=== PATIENT | female | born 1955 | race Caucasian/White ===

== ENCOUNTER 2016-10-19 18:42 | Outpatient (CLI) | payer OTHER | END 2016-10-19 18:43 | disposition home or self-care (01) | DX: R51 Headache (principal) ==

== ENCOUNTER 2017-06-17 08:48 | Outpatient (CLI) | payer OTHER ==
--- NOTE | 2017-06-19 14:10 | XRAY Report ---
EXAMINATION: THREE-VIEW LEFT FOOT 06/17/2017 CLINICAL INDICATION: Metatarsal pain. FINDINGS: AP, lateral, oblique views of the left foot demonstrate no evidence of acute fracture. Osteoarthritic changes are present, worst in the first metatarsophalangeal joint. Plantar and posterior calcaneal spurring is noted. IMPRESSION: OSTEOARTHRITIS. NO EVIDENCE OF ACUTE FRACTURE. TD: 06/17/2017 14:37 [facility]
== END 2017-06-17 08:49 | disposition home or self-care (01) ==
LOC: DI 08:48
PROVIDERS: ATTEND Family Medicine
DX: M19.072 Primary osteoarthritis, left ankle and foot (principal)

== ENCOUNTER 2018-10-10 15:26 | Outpatient (CLI) | payer OTHER ==
--- NOTE | 2018-10-13 13:13 | DEXA Report ---
Reason: R BREAST CANCER Procedure Date: 10/10/2018 Accession Number: [id number] / [id number] Procedure: DEX - Dexa Spine and/or Hip CPT Code: FULL RESULT: EXAM: Dexa Spine and/or Hip DATE: 10/10/2018 3:55 PM CLINICAL HISTORY: R BREAST CANCER TECHNIQUE: Dual energy x-ray absorptiometry (DXA) was performed on a [facility]. Regions measured are the AP Spine, femoral neck, and if needed forearm. COMPARISON: 03/29/2017. In accordance with the International Society for Clinical Densitometry (ISCD) guidelines, data from previous exams may be reanalyzed using current recommendations and techniques. This is done to allow a more accurate basis for comparison with the current study. FINDINGS: The data for the lumbar spine is as follows: BMD (g/cm/cm) T-SCORE Z-SCORE REGION L1 1.022 -0.9 0.5 L2 1.036 -1.4 0.1 L3 1.139 -0.5 0.9 L4 1.051 -1.2 0.2 TOTAL 1.065 -1.0 0.5 NOTE: All evaluable vertebrae are used for classification The data for the hip is as follows: BMD (g/cm/cm) T-SCORE Z-SCORE REGION Neck 0.995 -0.3 1.0 TOTAL 1.004 0.0 1.0 NOTE: The femoral neck or total proximal femur, whichever is lowest, is used for classification. DXA RESULTS SUMMARY: Spine SCAN DATE AGE BMD CHANGE VS CHANGE VS PREVIOUS PREVIOUS % 10[age]10/2018 63.3 1.065 -0.072* -6.3* 03/29/2017 61.7 1.137 * Denotes significant change at the 95% confidence level. Denotes dissimilar scan types or analysis methods. DXA RESULTS SUMMARY: Hip SCAN DATE AGE BMD CHANGE VS CHANGE VS PREVIOUS PREVIOUS % 10[age]10/2018 63.3 1.004 -0.011 -1.1 03/29/2017 61.7 1.015 * Denotes significant change at the 95% confidence level. Denotes dissimilar scan types or analysis methods. IMPRESSION: THE WHO CLASSIFICATION BASED ON THE INTERNATIONAL REFERENCE STANDARD IS NORMAL. THE FRACTURE RISK IS NOT INCREASED. RECOMMENDATION: Patients with diagnosis of osteoporosis or osteopenia should have regular bone mineral density assessment. For those eligible for Medicare, routine testing is allowed once every 2 years. Testing frequency can be increased for patients who have rapidly progressing disease or for those who are receiving medical therapy to restore bone mass. COMMENT: World Health Organization (WHO) definitions for osteoporosis and osteopenia: NORMAL BMD: T-score at -1.0 or higher, fracture risk is low OSTEOPENIA BMD: T-score between -1.0 and -2.5, fracture risk is increased. OSTEOPOROSIS BMD: T-score at -2.5 or lower, fracture risk is high. National Osteoporosis Foundation recommends: 1. Obtain adequate dietary calcium (at least 1200 mg per day) and vitamin D (400-800 international units per day). 2. Participate, as appropriate, in regular weightbearing and muscle-strengthening exercise. 3. Avoid tobacco use and reduce alcohol and caffeine intake. 4. For more detailed information see the website at www.NOF.org.
== END 2018-10-10 15:27 | disposition home or self-care (01) ==
LOC: DI 15:26
PROVIDERS: ATTEND Internal Medicine Hematology & Oncology
DX: Z78.0 Asymptomatic menopausal state (principal); C50.911 Malignant neoplasm of unspecified site of right female breast
CPT/HCPCS: 77080

== ENCOUNTER 2019-01-06 08:00 | Outpatient (CLI) | payer OTHER ==
[2019-01-06 12:17] LABS: BASOPHILS # (AUTO) 0.1 10^3/uL (0.0-0.1); EOSINOPHILS # (AUTO) 0.3 10^3/uL (0.0-0.7); HGB - HEMOGLOBIN 13.5 g/dL (12.0-16.0); LYMPHOCYTES # (AUTO) 1.8 10^3/uL (1.5-3.5); LYMPHOCYTES % (AUTO) 30.9 %; MEAN CORPUSCULAR HEMOGLOBIN 32.3 pg (27.0-31.0); MEAN CORPUSCULAR HGB CONC 33.9 g/dL (32.0-36.0); MEAN CORPUSCULAR VOLUME 95.2 fL (81.0-99.0); MEAN PLATELET VOLUME 9.6 fL (7.9-10.8); MONOCYTES # (AUTO) 0.6 10^3/uL (0.0-1.0); MONOCYTES % (AUTO) 9.9 %; NEUTROPHILS % (AUTO) 52.9 %; PLT - PLATELET COUNT 357 10^3/uL (130-450); RED BLOOD COUNT 4.18 10^6/uL (4.20-5.40); RED CELL DISTRIBUTION WIDTH 12.6 % (12.0-15.0); WHITE BLOOD COUNT 5.8 x10^3/uL (4.8-10.8)
[2019-01-06 12:55] LABS: ALBUMIN/GLOBULIN RATIO 1.3 (1.0-2.2); ALKALINE PHOSPHATASE 71 IU/L (42-121); ALT ALANINE AMINOTRANSFERASE 51 IU/L (10-60); AST ASPARTATE AMINOTRANSFERASE 29 IU/L (10-42); BILIRUBIN,TOTAL 0.6 mg/dL (0.2-1.0); BUN - BLOOD UREA NITROGEN 15 mg/dL (6-20); CALCIUM 9.4 mg/dL (8.5-10.3); CARBON DIOXIDE - CO2 23 mmol/L (21-32); CHLORIDE 108 mmol/L (101-111); CHOL/HDL RATIO 2.8 (<4.4); CHOLESTEROL 222 mg/dL; CREATININE 0.8 mg/dL (0.4-1.0); GFR - MDRD 72 (>89); GLUCOSE 102 mg/dL (70-100); HDL CHOLESTEROL 78 mg/dL; LDL CHOLESTEROL,CALCULATED 129 mg/dL; LDL/HDL RATIO 1.7 (<4.4); SODIUM 141 mmol/L (135-145); VLDL CHOLESTEROL 15 mg/dL
== END 2019-01-06 23:59 | disposition home or self-care (01) ==
LOC: LAB.WCP 08:00
PROVIDERS: ATTEND Family Medicine
DX: E78.5 Hyperlipidemia, unspecified (principal); C50.911 Malignant neoplasm of unspecified site of right female breast
CPT/HCPCS: 36415; 80053; 80061; 83721; 84443; 85025

== ENCOUNTER 2020-04-22 10:53 | Outpatient (CLI) | payer OTHER ==
--- NOTE | 2020-04-22 12:06 | DEXA Report ---
PROCEDURE: Dexa Spine and/or Hip INDICATIONS: POST MENOPAUSAL TECHNIQUE: Dual energy x-ray absorptiometry (DXA) was performed on a [employer] System. Regions measur ed are the AP Spine, femoral neck, and if needed forearm. COMPARISON: Portable 2019 FINDINGS: Lumbar Spine: Bone Mineral Density 1.183 g/cm/cm,T score 0.0, which represents a statistically significant incre ase of 11.1% when compared with prior study. Left Hip: Bone Mineral Density 0.988 g/cm/cm,T score -0.2, which represents a statistically insignificant decr ease of 1.6% when compared with the prior study. Left Femoral Neck: Bone Mineral Density 0.932 g/cm/cm, T score -0.8, which represents a statistically insignificant dec rease of -1.1 when compared with the prior study. (T score greater or equal to -1.0: NORMAL) (T score from -1.1 to -2.4: OSTEOPENIA) (T score less than or equal to -2.5 to: OSTEOPOROSIS) Impression: Normal bone mineral density which has increased significantly in the lumbar spine when co mpared with 10/10/2018 exam. Patients with diagnosis of osteoporosis or osteopenia should have regular bone mineral density assess ment. For those eligible for Medicare, routine testing is allowed once every 2 years. Testing frequ ency can be increased for patients who have rapidly progressing disease or for those who are receivin g medical therapy to restore bone mass. Reviewed by: Arnie Howard MD on 04/22/2020 12:05 PM PDT Approved by: Arnie Howard MD on 04/22/2020 12:05 PM PDT Station ID: [id number]
== END 2020-04-22 10:54 | disposition home or self-care (01) ==
LOC: DI 10:53
PROVIDERS: ATTEND Internal Medicine Hematology & Oncology
DX: Z78.0 Asymptomatic menopausal state (principal)
CPT/HCPCS: 77080

== ENCOUNTER 2021-03-31 09:09 | Outpatient (CLI) | payer OTHER ==
--- NOTE | 2021-03-31 15:39 | Nuclear Medicine Report ---
PROCEDURE: Bone Whole Body INDICATIONS: CARCINOMA OF RIGHT BREAST RADIOPHARMACEUTICAL: 25.8 mCi Tc-99m MDP IV. TECHNIQUE: Delayed whole-body scintigrams were obtained approximately 3-4 hours after intravenous injection of r adiotracer. Anterior and posterior views were acquired from vertex to feet. COMPARISON: None available. FINDINGS: Mild periarticular activity about the knees bilaterally, likely degenerative. There is sim ilar appearance tracer uptake involving the right hindfoot/midfoot, and left first MTP joint. IMPRESSION: No suspicious tracer uptake to suggest osseous metastatic disease. Reviewed by: Elmer Page MD on 03/31/2021 3:37 PM PDT Approved by: Elmer Page MD on 03/31/2021 3:37 PM PDT Station ID: [id number]
== END 2021-03-31 09:10 | disposition home or self-care (01) ==
LOC: DI 09:09
PROVIDERS: ATTEND Family Medicine
DX: C50.911 Malignant neoplasm of unspecified site of right female breast (principal)
CPT/HCPCS: 78306; A9503

== ENCOUNTER 2021-05-10 07:46 | Outpatient (CLI) | payer MEDICARE ==
[2021-05-10 08:26] LABS: CREATININE 0.7 mg/dL (0.4-1.0)
[2021-05-10] MEDS ORDERED: IOVERSOL 320 100 ML VIAL IVP ONE ×2 (08:43→09:07)
--- NOTE | 2021-05-10 09:12 | CT Report ---
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 7 mm thick coronal MIP reformats were acquired. For radia tion dose reduction, the following was used: automated exposure control, adjustment of mA and/or kV according to patient size. COMPARISON: None. FINDINGS: CHEST: Lungs: Scattered subsegmental scarring/atelectasis. No acute consolidation. Pleura: No pleural effusion or pneumothorax. Heart: Normal. Lymph nodes: Normal. Thyroid: Negative Aorta: Normal in size. Pulmonary arteries: Normal. Esophagus: Normal. Bones: Diffuse spondolytic changes and facet arthropathy. No compression fracture. No suspicious bon e lesion. Upper abdomen: Moderate hiatal hernia is noted. Bilateral breast postsurgical changes as well as axillary surgical clips. IMPRESSION: Moderate hiatal hernia. Scattered subsegmental scarring/atelectasis. No acute consolidation. No fracture. No suspicious osseous lesion identified. Reviewed by: Elmer Page MD on 05/10/2021 9:11 AM PST Approved by: Elmer Page MD on 05/10/2021 9:11 AM PST Station ID: [id number]
== END 2021-05-10 07:47 | disposition home or self-care (01) ==
LOC: LAB 07:46 → DI 07:47
PROVIDERS: ATTEND Family Medicine
DX: C50.911 Malignant neoplasm of unspecified site of right female breast (principal); M89.8X1 Other specified disorders of bone, shoulder; Z87.898 Personal history of other specified conditions; K44.9 Diaphragmatic hernia without obstruction or gangrene; J98.11 Atelectasis
CPT/HCPCS: 36415; 71260; 82565; Q9967

== ENCOUNTER 2021-07-04 09:44 | Day surgery (SDC) | payer MEDICARE ==
[2021-07-04] MEDS ORDERED: LACTATED RINGERS 1,000 ML IV ONE (10:00)
--- NOTE | 2021-07-04 10:34 | ANESTHESIA ---
Pre-Anesthesia VS, & Labs - Diagnosis dysphagia, screening - Procedure EGD/Colonoscopy Vital Signs: Temp Pulse Resp BP Pulse Ox 36.7 C 100 12 134/93 H 98 07/04/21 10:01 07/04/21 10:01 07/04/21 10:01 07/04/21 10:01 07/04/21 10:01 Height: 5 ft 4 in Weight (kg): 67 kg Body Mass Index: 25.3 BMI Classification: Overweight - NPO >8 hours - Is Patient ?: No - Lab Results Lab results reviewed: Yes Home Medications and Allergies Citalopram [CeleXA] 20 mg PO DAILY 01/26/13 Gabapentin 300 mg PO Q8H PRN 02/24/13 Calcium Carbonate [Calcium] 500 mg PO DAILY 06/15/14 Multivitamin [Multi Vitamin Daily] 1 each PO DAILY 06/15/14 Exemestane [Aromasin] 25 mg PO DAILY 04/09/17 Allergies/Adverse Reactions: Allergies Allergy/AdvReac Type Severity Reaction Status Date / Time No Known Drug Allergies Allergy Verified 04/26/20 10:59 Anes History & Medical History - Anesthetic History Anesthesia Complications: reports: No previous complications Family history of Anesthesia Complications: Denies Family history of Malignant Hyperthermia: Denies - Medical History Cardiovascular: reports: None Pulmonary: reports: Other Gastrointestinal: reports: GERD, Hiatal hernia Urinary: reports: None Musculoskeletal: reports: None Endocrine/Autoimmune: reports: None Skin: reports: None - Surgical History General: reports: Colonoscopy Eyes Ears Nose Throat (EENT): reports: Cataracts Gynecologic: reports: Mastectomy, Other Exam General: Alert, Oriented x3, Cooperative Dental: WNL Mouth Openin Fingerbreadth Neck Mobility: Normal Mallampati classification: II Thyromental Distance: 4-6 cm Respiratory: Lungs clear, Normal breath sounds, No respiratory distress Cardiovascular: Regular rate Neurological: Normal speech Mental/Cognitive Status: Alert/Oriented X3, Normal for patient Cognitive Status: Within normal limits Plan Anesthesia Type: General Consent for Procedure(s) Verified and Reviewed: Yes Code Status: Attempt Resuscitation ASA classification: 2-Mild systemic disease Is this case an emergency?: No
[2021-07-04] MEDS ORDERED: LIDOCAINE-MPF 2% 5 ML VIAL ONE (11:27)
[2021-07-04] MEDS ORDERED: PROPOFOL 200 MG/20 ML VIAL IVP ONE (11:27)
[2021-07-04] MEDS ORDERED: PROPOFOL 500 MG/50 ML 500 MG/50 ML VIAL ONE (11:28)
[2021-07-04] MEDS ORDERED: LACTATED RINGERS 200 ML IV ONE (12:14)
[2021-07-04 12:50] VITALS: BP 110/72
--- NOTE | 2021-07-04 14:04 | ANESTHESIA POST OP EVALUATION ---
Anesthesia Post Eval - Post Anesthesia Eval Vitals: Last Vital Signs Temp 36.6 C 07/04/21 12:49 Pulse 68 07/04/21 12:49 Resp 17 07/04/21 12:49 BP 110/72 07/04/21 12:49 Pulse Ox 99 07/04/21 12:49 CV Function Including HR & BP: Stable Pain Control: Satisfactory Nausea & Vomiting: Negative Mental Status: Baseline Respiratory Status: Airway Patent Hydration Status: Satisfactory Anesthesia Complications: None
== END 2021-07-04 09:45 | disposition home or self-care (01) ==
LOC: SDS 09:44
PROVIDERS: ATTEND Surgery
PROC: 0DB48ZX Excision of Esophagogastric Junction, Via Natural or Artificial Opening Endoscopic, Diagnostic (ICD-10-PCS; 2021-07-04)
PROC: 0DB68ZX Excision of Stomach, Via Natural or Artificial Opening Endoscopic, Diagnostic (ICD-10-PCS; 2021-07-04)
PROC: 0DJD8ZZ Inspection of Lower Intestinal Tract, Via Natural or Artificial Opening Endoscopic (ICD-10-PCS; 2021-07-04)
PROC: 0DB98ZX Excision of Duodenum, Via Natural or Artificial Opening Endoscopic, Diagnostic (ICD-10-PCS; principal; 2021-07-04 10:45)
PROC: 0DB58ZX Excision of Esophagus, Via Natural or Artificial Opening Endoscopic, Diagnostic (ICD-10-PCS; 2021-07-04 10:45)
DX: Z12.11 Encounter for screening for malignant neoplasm of colon (principal); R13.10 Dysphagia, unspecified; K29.50 Unspecified chronic gastritis without bleeding; K44.9 Diaphragmatic hernia without obstruction or gangrene; K57.30 Diverticulosis of large intestine without perforation or abscess without bleeding; K64.8 Other hemorrhoids; K21.9 Gastro-esophageal reflux disease without esophagitis; F41.9 Anxiety disorder, unspecified; F32.A Depression, unspecified; Z85.3 Personal history of malignant neoplasm of breast
CPT/HCPCS: 43239; 43250; G0121; J7120

== ENCOUNTER 2023-03-06 07:08 | Outpatient (CLI) | payer MEDICARE ==
[2023-03-06 07:26] LABS: BASOPHILS # (AUTO) 0.1 10^3/uL (0.0-0.1); EOSINOPHILS # (AUTO) 0.4 10^3/uL (0.0-0.7); EOSINOPHILS % (AUTO) 6.7 %; HCT - HEMATOCRIT 40.7 % (37.0-47.0); HGB - HEMOGLOBIN 13.9 g/dL (12.0-16.0); LYMPHOCYTES # (AUTO) 2.1 10^3/uL (1.5-3.5); LYMPHOCYTES % (AUTO) 34.4 %; MEAN CORPUSCULAR HEMOGLOBIN 32.8 pg (27.0-31.0); MEAN CORPUSCULAR HGB CONC 34.2 g/dL (32.0-36.0); MEAN PLATELET VOLUME 8.8 fL (7.9-10.8); MONOCYTES # (AUTO) 0.5 10^3/uL (0.0-1.0); MONOCYTES % (AUTO) 8.9 %; NEUTROPHILS # (AUTO) 2.9 10^3/uL (1.5-6.6); NEUTROPHILS % (AUTO) 48.7 %; PLT - PLATELET COUNT 291 10^3/uL (130-450); RED BLOOD COUNT 4.24 10^6/uL (4.20-5.40); RED CELL DISTRIBUTION WIDTH 12.4 % (12.0-15.0)
[2023-03-06 07:46] LABS: ALBUMIN 4.3 g/dL (3.2-5.5); ALBUMIN/GLOBULIN RATIO 1.8 (1.0-2.2); ALKALINE PHOSPHATASE 53 IU/L (42-121); ALT ALANINE AMINOTRANSFERASE 20 IU/L (10-60); AST ASPARTATE AMINOTRANSFERASE 16 IU/L (10-42); BILIRUBIN,TOTAL 0.8 mg/dL (0.2-1.0); BUN - BLOOD UREA NITROGEN 15 mg/dL (6-20); CALCIUM 9.6 mg/dL (8.5-10.3); CARBON DIOXIDE - CO2 30 mmol/L (21-32); CHLORIDE 105 mmol/L (101-111); CHOL/HDL RATIO 2.8 (<4.4); CHOLESTEROL 234 mg/dL; CREATININE 0.8 mg/dL (0.6-1.3); GFR - MDRD 72 (>89); GLUCOSE 106 mg/dL (74-104); HDL CHOLESTEROL 84 mg/dL; LDL CHOLESTEROL,CALCULATED 118 mg/dL; LDL/HDL RATIO 1.4 (<4.4); POTASSIUM 4.5 mmol/L (3.5-4.5); SODIUM 140 mmol/L (135-145); TOTAL PROTEIN 6.7 g/dL (6.4-8.9); TRIGLYCERIDES 159 mg/dL (48-352); VLDL CHOLESTEROL 32 mg/dL
[2023-03-06 07:58] LABS: THYROID STIMULATING HORMONE 4.76 uIU/mL (0.34-5.60)
== END 2023-03-06 07:09 | disposition home or self-care (01) ==
LOC: LAB 07:08
PROVIDERS: ATTEND Nurse Practitioner Family
DX: Z00.00 Encounter for general adult medical examination without abnormal findings (principal)
CPT/HCPCS: 36415; 80053; 80061; 83721; 84443; 85025

== ENCOUNTER 2023-08-21 14:46 | Outpatient (CLI) | payer MEDICARE ==
--- NOTE | 2023-08-21 16:17 | XRAY Report ---
PROCEDURE: Knee 4+V RT INDICATIONS: RIGHT KNEE PAIN TECHNIQUE: 4 views of the knee(s) were acquired. COMPARISON: None. FINDINGS: Bones: No fractures or dislocations. Mild medial and patellofemoral compartment joint space narrowi ng and juxta-articular osteophytosis. Lateral compartment is maintained. No suspicious bony lesions. Soft tissues: No knee joint effusion. No suspicious soft tissue calcifications or masses. IMPRESSION: 1.No acute bony abnormality. 2.Mild right medial and patellofemoral compartment osteoarthritis. Reviewed by: Clara Alex MD on 08/21/2023 4:15 PM PST Approved by: Clara Alex MD on 08/21/2023 4:15 PM PST Station ID: [id number]
== END 2023-08-21 14:47 | disposition home or self-care (01) ==
LOC: DI 14:46
PROVIDERS: ATTEND Nurse Practitioner Family
DX: M17.11 Unilateral primary osteoarthritis, right knee (principal)

== ENCOUNTER 2023-09-04 09:49 | Outpatient (CLI) | payer MEDICARE ==
--- NOTE | 2023-09-04 10:34 | Sleep Patient Instructions ---
Sleep Center Visit Summary - Patient Visit Information Reason for Visit: Initial consult for evaluation of sleep disordered breathing and other sleep issues. - Patient Instructions Instructions Attached: Sleep Study Additional Instructions: You will be completing a sleep study, either an in-lab polysomnography (PSG) or home sleep study (HST). You will follow-up in the sleep care office after the sleep study is completed to hear the results and talk about therapy, if needed. You will be called by our office staff to schedule this appointment, but you may contact us with any questions. - Clinic Information Contact: [facility] [address] [place] [address] [email or web address] T: [phone]
--- NOTE | 2023-09-04 10:39 | SLEEP CARE CONSULTATION ---
Information from patient questionnaire entered by Dora Gonzalez. I have reviewed and concur with the information entered by Dora Gonzalez. This document represents the service I personally performed and the decisions made by me, Tyesha Finney ARNP. History of Present Illness Service Date and Time: 09/04/2023 0949 Reason for Visit: New patient Chief Complaint: reports: Snoring, Frequent awakenings at night Date of Onset: 5YRS Usual bedtime: 11PM Time it takes to fall asleep: 15MINS Snores at night: Yes Observed to quit breathing while asleep: Yes (rarely) Sleeps alone due to snoring: No Number of times waking at night: 1-3 Reasons for waking at night: reports: Snoring, Bathroom, Other (UNKNOWN AND HEAT FLASH). denies: Choking, Gasping for air Toss, Turn, or Twitch while sleeping: Yes Recalls having dreams: No (never has) Usually gets out of bed at: 7AM Feels refreshed in the morning: Yes Morning headache: Yes (1 time a week, last through the morning, sometimes takes meds) Sleepy or fatigued during the day: No Ever fallen asleep while driving: No Takes day naps: No Dreams during day naps: No Prior sleep studies: No Additional HPI information: I had the pleasure of seeing SYEDA WELLS today regarding the possibility of her having a sleep disorder. Her current complaints are frequent night awakenings and snoring. She says she is a terrible snorer. She is getting r estless sleep and does not notice a pattern of why. She says she takes gabapentin for RLS and it really calms her legs. Her has never told her she stops breathing. She does talk in her sleep. She will usually read for 1 hour before going to sleep or if she wakes up and cannot go back to sleep. She can return to sleep after about an hour. She does state that she mostly feels rested in the mornings. She has woke up with a headache, but not often and they resolve in a few hours. She says her father was diagnosed with severe sleep apnea but does not want to try CPAP. She thinks her sister has sleep apnea and is using a PAP machine. - Parasomnia Symptoms Ever been unable to move upon waking from sleep: No Walks in sleep: No Talks in sleep: Yes Ever acted out dreams in sleep: No Ever felt weak in the knees when startled or emotional: No Bothered by creepy, crawly, restless sensations in legs: Yes (has RLS) Problems with memory or concentration: Yes (a little, occasionally) Subjective Initial [place] Sleepiness Scale score: 4 (09/04/23) Past Medical History Past Medical History: reports: Depression, Other (RLS; hx breast cancer) Social History The patient's occupation is a [employer]. Patient is and lives in [place]. Have you smoked in the past 12 months: No Alcohol use: Yes Alcohol amount and frequency: 1-2 GLASS OF WINE 5X WEEK Caffeine use: Yes Caffeine amount and frequency: 2 CUPS COFFEE DAILY Family History Family history of sleep disordered breathing: Yes Family Hx Sleep Apnea: Mother: Snoring, Father: Sleep apnea - Untreated, Sibling: Snoring, Sleep apnea - Treated Allergies and Home Medications Known drug allergies: No Drug allergies reviewed: Yes Home medication list reviewed: Yes (as listed) Allergy and home medication list: Allergies No Known Drug Allergies Allergy (Verified 09/02/23 08:55) Home Medications Medication Instructions Recorded Confirmed Last Taken Type Citalopram [CeleXA] 20 mg PO DAILY 01/26/13 05/31/23 07/02/21 History Gabapentin 300 mg PO Q8H PRN 02/24/13 05/31/23 07/02/21 History Calcium Carbonate [Calcium] 500 mg PO DAILY 06/15/14 05/31/23 07/02/21 History Multivitamin [Multi Vitamin Daily] 1 each PO DAILY 06/15/14 05/31/23 07/02/21 History Exemestane [Aromasin] 25 mg PO DAILY 04/09/17 05/31/23 07/02/21 History Review of Systems Cardiovascular: denies: high blood pressure Gastrointestinal: denies: heartburn Neurological: denies: headaches, head trauma Psychiatric: denies: anxiety, depression Ear/Nose/Throat: reports: injury to nose (as a child). denies: tonsillectomy Endocrine: denies: thyroid disease Physical Exam Vital signs obtained and entered by: DORA Centeno MA Blood Pressure: 125/78 (LEFT ARM) Cuff size: regular Heart Rate: 68 O2 Saturation: 98 Height: 5 ft 3.5 in Weight: 150 lb Body Mass Index: 26.2 BMI Classification: Overweight Neck circumference: 14.75 Mouth and throat: narrow oropharynx Soft palate: long Hard palate: normal Uvula: normal Uvula visualization: 25% Mallampati Class III Tongue: normal in size Tonsils: small Neck: normal w/o lymphadenopathy or thyromegaly Heart: regular rate and rhythm Lungs: clear bilaterally Impression and Plan 1. Suspected Obstructive Sleep Apnea-Hypopnea Syndrome, as suggested by a history of loud and irregular snoring, morning headache, frequent awakening during the night and cognitive impairment. Narrow oropharynx and obesity are common predisposing factors for obstructive sleep apnea-hypopnea syndrome. I recommend proceeding to polysomnography to confirm the diagnosis and to assess severity. If the patient has significant sleep disordered breathing, a manual CPAP titration study will also be performed to find the optimal treatment pressure. I informed the patient of what the sleep studies involve and after some discussion, obtained agreement to proceed. The pathophysiology of obstructive sleep apnea-hypopnea syndrome was discussed with the patient and health risks of cardiovascular and cerebrovascular disease if not treated. 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 Patient agreed to plan. * Schedule polysomnography +- manual CPAP titration study and return in 1-2 weeks after the study to discuss result and initiate therapy. * Avoid long distance driving or driving when feeling sleepy. * Avoid alcohol, sedative and muscle relaxant around bedtime. * Attempt to lose weight. * Review instructions provided by trained office staff on how to prepare for the sleep study. * Return for follow-up after sleep study completed. Counseling Topics: Weight loss health impact Plan: PSG/HST Visit Type: In Office Time Spent with Patient (minutes): 30 Provider Statement: I spent 100% of the Face to Face Visit with the patient with greater than 50% spent counseling the patient and coordination of care.
[2023-09-04 10:41] VITALS: BP 125/78; O2SAT 98
== END 2023-09-04 09:50 | disposition home or self-care (01) ==
LOC: SC 09:49
PROVIDERS: ATTEND Nurse Practitioner Family
DX: G47.8 Other sleep disorders (principal); R41.89 Other symptoms and signs involving cognitive functions and awareness; R06.83 Snoring; R51.9 Headache, unspecified
CPT/HCPCS: 99203; G0463; 99212

== ENCOUNTER 2023-09-26 19:38 | Outpatient (CLI) | payer MEDICARE | END 2023-09-26 19:39 | disposition home or self-care (01) | LOC: SC 19:38 | PROVIDERS: ATTEND Nurse Practitioner Family | DX: G47.33 Obstructive sleep apnea (adult) (pediatric) (principal) | CPT/HCPCS: 95810 ==

== ENCOUNTER 2023-10-18 09:18 | Outpatient (CLI) | payer MEDICARE ==
--- NOTE | 2023-10-18 09:34 | Sleep Patient Instructions ---
Sleep Center Visit Summary - Patient Visit Information Reason for Visit: Sleep study follow-up - Patient Instructions Additional Instructions: You are being started on CPAP therapy. You will be completing a titration sleep study in our sleep lab where you will be sleeping with the CPAP machine on and we will be adjusting your pressures to find your optimal pressure settings. Once we have your results back, we will call you and schedule a follow up to go over the results, you may contact us with any questions or issues as needed. - Clinic Information Contact: [facility] [address] [place] [id number] [email or web address] T: [phone]
--- NOTE | 2023-10-18 09:37 | SLEEP CARE CONSULTATION ---
Information from patient questionnaire entered by Namrata Gonzalez. I have reviewed and concur with the information entered by Namrata Gonzalez. This document represents the service I personally performed and the decisions made by , Tyesha Finney ARNP. History of Present Illness Service Date and Time: 10/18/2023917 Initial [place] Sleepiness Scale score: 4 (09/04/23) Current [place] Sleepiness Scale score: 9 Additional HPI information: SYEDA WELLS returns for follow up and results of the recently performed polysomnography. The sleep study showed severe obstructive sleep apnea with an average AHI of 44 and mahesh oxygen saturation of 81%. I explained the pathophysiology behind obstructive sleep apnea. We then spent quite a bit of time discussing different treatment options. For mild obstructive sleep apnea, surgery and oral appliance are alternatives to nasal CPAP therapy but in moderate or severe cases, nasal CPAP is the most effective and reliable treatment. I reviewed the impact of weight changes on sleep apnea and strongly recommended losing weight. After some discussion, the patient opted to go with the nasal CPAP therapy. A manual titration study will be ordered to find optimal pressure with office adj ustments. Patient counseled not drink alcohol less than 4 hours before bedtime as it can increase snoring and apnea. Patient was cautioned about risks of drowsy driving until sleepiness symptoms resolve. Patient denies drowsy driving. Sleep Study - Results Type of Sleep Study: Polysomnography (COMPLETED 09/26/23) Prior sleep studies: No Polysomnography/Home Sleep Study results: IMPRESSION: The quality of the study is good. The patient had normal sleep efficiency. The sleep architecture was abnormal for sleep fragmentation and reduced amount of time spent in slow wave sleep (N3). Respiratory monitoring showed severe obstructive sleep apnea-hypopnea (AHI = 44.0) associate d with frequent arousals, oxyhemoglobin desaturation and mild hypoxia (mahesh oxygen saturation of 81%). The respiratory events occurred more frequently during supine sleep (supine AHI = 56.8; non-supine = 19.24). Snore was very loud in intensity. There was no significant periodic leg movement of sleep. Cardiac rhythm was normal sinus rhythm without significant arrhythmia. No abnormal behavior (parasomnia) observed during the night. Allergies and Home Medications Known drug allergies: No Drug allergies reviewed: Yes Home medication list reviewed: Yes (no changes) Allergy and home medication list: Allergies No Known Drug Allergies Allergy (Verified 10/16/23 13:19) Review of Systems Review of systems same as previous: Yes (no changes) Physical Exam Vital signs obtained and entered by: TYESHA RAM Blood Pressure: 128/83 Cuff size: regular (right arm) Heart Rate: 69 O2 Saturation: 97 Height: 5 ft 3.5 in Weight: 146 lb 9.6 oz Body Mass Index: 25.5 BMI Classification: Overweight Impression and Plan 1. Obstructive Sleep Apnea-Hypopnea Syndrome, severe, with lowest oxygen saturation of 81%. Obviously this is the cause of the patients symptoms of unrefreshed sleep, and excessive daytime sleepiness. Positive pressure therapy could benefit depression and RLS. As mentioned above, the patient will be started on nasal autoCPAP therapy. A m anual titration study will be completed to find optimal treatment pressure with office adjustments. Compliance guidelines also reviewed. Because the apnea is more severe supine, I instructed to avoid sleeping supine using pillow positioning until able to start CPAP use. 2. Hypoxemia, mild, with a mahesh oxygen saturation of 81% and 35 minutes spent under 90%. The baseline oxygen saturation was normal with an average oxygen saturation of 93%. * Titration study. * Maintain a healthy weight. * Avoid alcohol consumption near bedtime. * Avoid supine sleep until using CPAP. * The patient is again cautioned about driving until sleepiness completely resolves. * Return for results review after titration study and to be set up on therapy. Counseling Topics: Sleeping position, Weight control Plan: Titration study and followup Visit Type: In Office Time Spent with Patient (minutes): 21 Provider Statement: I spent 100% of the Face to Face Visit with the patient with greater than 50% spent counseling the patient and coordination of care.
[2023-10-18 09:48] VITALS: BP 128/83; O2SAT 97
== END 2023-10-18 09:19 | disposition home or self-care (01) ==
LOC: SC 09:18
PROVIDERS: ATTEND Nurse Practitioner Family
DX: G47.33 Obstructive sleep apnea (adult) (pediatric) (principal); R09.02 Hypoxemia
CPT/HCPCS: 99213; G0463; 99212

== ENCOUNTER 2023-11-22 20:42 | Outpatient (CLI) | payer MEDICARE | END 2023-11-22 20:43 | disposition home or self-care (01) | LOC: SC 20:42 | PROVIDERS: ATTEND Nurse Practitioner Family | DX: G47.33 Obstructive sleep apnea (adult) (pediatric) (principal) | CPT/HCPCS: 95811 ==

== ENCOUNTER 2023-12-18 08:52 | Outpatient (CLI) | payer MEDICARE ==
--- NOTE | 2023-12-18 09:11 | Sleep Patient Instructions ---
Sleep Center Visit Summary - Patient Visit Information Reason for Visit: Titration study follow-up - Patient Instructions Additional Instructions: You will be completing a titration sleep study in our sleep lab where you will be sleeping with the BiPAP machine on and we will be adjusting your pressures to find your optimal pressure settings. Once we have your results back, we will call you and schedule a follow up to go over the results, you may contact us with any questions or issues as needed. - Clinic Information Contact: [facility] [address] [place] [id number] [email or web address] T: [phone]
--- NOTE | 2023-12-18 09:14 | SLEEP CARE CONSULTATION ---
Information from patient questionnaire entered by Namrata Gonzalez. I have reviewed and concur with the information entered by Namrata Gonzalez. This document represents the service I personally performed and the decisions made by , Tyesha Finney ARNP. History of Present Illness Service Date and Time: 12/18/2023 0852 Initial [place] Sleepiness Scale score: 4 (09/04/23) Current [place] Sleepiness Scale score: 9 (12/18/23) Additional HPI information: SYEDA WELLS returns for follow up of a manual CPAP titration study performed on 11/22/23. Previous study done on 09/26/23 showed severe obstructive sleep apnea with AHI 44. The patient was informed of the following polysomnography findings: CPAP was initiated at 5 cmH2O and titrated up to CPAP at 20 cmH2O. None of the tested pressures were adequate during supine sleep. Oxygen saturation was normal throughout the night. The patient appeared to have tolerated positive airway pressure therapy well. A repeat BiPAP titration study will be need to find optimal pressures. Sleep Study - Results Type of Sleep Study: Polysomnography (COMPLETED 09/26/23 TITRATION COMPLETED 11/22/23) Prior sleep studies: No Polysomnography/Home Sleep Study results: IMPRESSION: The quality of the study is good. CPAP was initiated at 5 cmH2O and titrated up to CPAP at 20 cmH2O. None of the tested pressures were adequate during supine sleep. Oxygen saturation was normal throughout the night. The patient appeared to have tolerated positive airway pressure therapy well. The patients sleep efficiency was slightly reduced due to a few awakenings during the night. The sleep architecture was abnormal for sleep fragmentation and reduced amount of time spent in REM sleep. There was no significant periodic leg movement of sleep. Cardiac rhythm was normal sinus rhythm without significant arrhythmia. No abnormal behavior (parasomnia) observed during the night. CONCLUSIONS and RECOMMENDATIONS: 1. Obstructive sleep apnea-hypopnea (ICD-10 G47.33), severe (AHI was 44.0), not adequately controlled with CPAP at the highest setting. The mask used was a [employer] Dream[employer]ear full face mask size medium. The patient should return for a BiPAP titration study starting at a moderate pressure, e.g. 16/12 cmH20. Full face masks should be avoided unless the patient cannot breathe through the nose. This is because full face masks push the lower posteriorly and can potentially worsen upper airway obstruction, requiring higher pressure. Allergies and Home Medications Known drug allergies: No Drug allergies reviewed: Yes Home medication list reviewed: Yes (no changes) Allergy and home medication list: Allergies No Known Drug Allergies Allergy (Verified 12/16/23 08:23) Review of Systems Review of systems same as previous: Yes (NO CHANGE) Physical Exam Vital signs obtained and entered by: NAMRATA Centeno MA Blood Pressure: 146/88 (RIGHT ARM) Cuff size: regular Heart Rate: 73 O2 Saturation: 98 Height: 5 ft 3.5 in Weight: 149 lb 12.8 oz Body Mass Index: 26.1 BMI Classification: Overweight Impression and Plan 1. Obstructive Sleep Apnea-Hypopnea Syndrome, severe. She returns to the office after CPAP titration study. Positive pressure therapy could benefit depression and RLS. Her titration did not achieve optimal pressure control of her sleep apnea with CPAP settings and it was recommended that we proceed to a BiPAP titration study to find optimal pressure for controlling her severe SOY. I obtained agreement to proceed. The pathophysiology of obstructive sleep apnea- hypopnea syndrome was discussed with the patient and health risks of cardiovascular and cerebrovascular disease if not treated. Risks of drowsy driving discussed in detail and patient advised to avoid long distance driving and to pack puller at the first sign of drowsiness. Patient agreed to plan. 2. Overweight, unspecified. Currently patients BMI is 26.1. Obesity increases the risk of apnea, CPAP pressure requirements and overall health risks especially cardiovascular and diabetes. Thus patient is advised to maintain a healthy weight. * Schedule BIPAP titration study. * Avoid long distance driving or driving when feeling sleepy. * Avoid alcohol, sedative and muscle relaxant around bedtime. * Attempt to lose weight. * Review instructions provided by trained office staff on how to prepare for the sleep study. * Return for follow-up after titration study completed. Counseling Topics: Weight control Plan: Titration study and follow up Visit Type: In Office Time Spent with Patient (minutes): 11 Provider Statement: I spent 100% of the Face to Face Visit with the patient with greater than 50% spent counseling the patient and coordination of care.
[2023-12-18 09:26] VITALS: BP 146/88; O2SAT 98
== END 2023-12-18 08:53 | disposition home or self-care (01) ==
LOC: SC 08:52
PROVIDERS: ATTEND Nurse Practitioner Family
DX: G47.33 Obstructive sleep apnea (adult) (pediatric) (principal); E66.3 Overweight; Z68.26 Body mass index [BMI] 26.0-26.9, adult
CPT/HCPCS: 99212; G0463

== ENCOUNTER 2024-01-21 20:44 | Outpatient (CLI) | payer MEDICARE | END 2024-01-21 20:45 | disposition home or self-care (01) | LOC: SC 20:44 | PROVIDERS: ATTEND Nurse Practitioner Family | DX: G47.33 Obstructive sleep apnea (adult) (pediatric) (principal) | CPT/HCPCS: 95811 ==

== ENCOUNTER 2024-02-13 14:55 | Outpatient (CLI) | payer MEDICARE ==
--- NOTE | 2024-02-13 14:55 | SLEEP CARE CONSULTATION ---
Information from patient questionnaire entered by Dora Gonzalez. I have reviewed and concur with the information entered by Dora Gonzalez. This document represents the service I personally performed and the decisions made by , Tyesha Finney ARNP. History of Present Illness Service Date and Time: 02/13/2024 1440 Initial [place] Sleepiness Scale score: 4 (09/04/23) Current [place] Sleepiness Scale score: 11 (02/13/24) Additional HPI information: SYEDA WELLS returns via telephone visit for follow up of the sleep study with a manual CPAP titration study performed on 01/21/24. Her last sleep study dated 09/26/2023 showed severe obstructive sleep apnea with an AHI of 44. The patient was informed of the following polysomnography findings: CPAP was initiated at 10 cmH2O and titrated up to BiPAP at 16/12 cmH2O. CPAP at 12 cmH2O appeared to be optimal (AHI of 0 per hour on the pressure). There was supine sleep on the pressure. Oxygen saturation was normal throughout the night. Lower CPAP settings allowed snores. The patient appeared to have tolerated positive airway pressure therapy fairly well. Her obstructive sleep apnea- hypopnea, severe (AHI was 44.0), was adequately controlled with CPAP at 12 cmH2O. CPAP therapy is, therefore, recommended at that pressure setting, however an autoCPAP set between 10-15 cmH20 is also appropriate. Sleep Study - Results Type of Sleep Study: Polysomnography (COMPLETED 09/26/23 TITRATION COMPLETED ) Prior sleep studies: No Polysomnography/Home Sleep Study results: IMPRESSION: The quality of the study is good. CPAP was initiated at 10 cmH2O and titrated up to BiPAP at 16/12 cmH2O. CPAP at 12 cmH2O appeared to be optimal (AHI of 0 per hour on the pressure). There was supine sleep on the pressure. Oxygen saturation was normal throughout the night. Lower CPAP settings allowed snores. The patient appeared to have tolerated positive airway pressure therapy fairly well. The patients sleep efficiency was normal. The sleep architecture was relatively normal as well considering the first-night effect. There was no periodic leg movement of sleep. Cardiac rhythm was normal sinus rhythm without significant arrhythmia. No abnormal behavior (parasomnia) observed during the night. CONCLUSIONS and RECOMMENDATIONS: 1. Obstructive sleep apnea-hypopnea (ICD-10 G47.33), severe (AHI was 44.0), adequately controlled with CPAP at 12 cmH2O. CPAP therapy is, therefore, recommended at the pressure setting. AutoCPAP set between 10 and 15 cmH20 is also appropriate. The mask used was a [employer] Wisp nasal mask size large (CPAP therapy was not effective when a full face mask was used during her last PAP titration study). Allergies and Home Medications Known drug allergies: No Drug allergies reviewed: Yes Home medication list reviewed: Yes (no changes) Allergy and home medication list: Allergies No Known Drug Allergies Allergy (Verified 02/13/24 14:31) Review of Systems Review of systems same as previous: Yes (NO CHANGE) Physical Exam Vital signs obtained and entered by: DORA Centeno MA Height: 5 ft 3 in (PER PT) Weight: 145 lb (PER PT) Body Mass Index: 25.7 BMI Classification: Overweight Impression and Plan 1. Obstructive Sleep Apnea-Hypopnea Syndrome, severe. She returns for results of her titration study which showed optimal pressure setting of 12 cm H2O. She would also do well with pressure set at 10-15 cm H2O. The positive pressure therapy could benefit depression and RLS. As mentioned above, the patient will be started on nasal autoCPAP therapy with pressure set at 10-15 cmH2O. Compliance guidelines also reviewed. A copy of compliance guidelines will be given for reference at check out. 2. Overweight, unspecified. Currently patients BMI is 25.7. Obesity increases the risk of apnea, CPAP pressure requirements and overall health risks especially cardiovascular and diabetes. Thus patient is advised to maintain healthy weight. * Nasal auto CPAP therapy, pressure at 10-15 cm H2O. * Maintain a healthy weight. * Avoid supine sleep until using CPAP. * The patient is again cautioned about driving until sleepiness completely resolves. * Return one month after CPAP obtained. I will assess response to therapy and compliance at that time. Counseling Topics: Weight loss health impact Prescriptions: Auto CPAP Plan: start cpap and compliance Visit Type: Telehealth Phone Time Spent with Patient (minutes): 19 Provider Statement: I spent 100% of the Telehealth Phone Call with the patient with greater than 50% spent counseling the patient and coordination of care.
== END 2024-02-13 14:56 | disposition home or self-care (01) ==
LOC: SC 14:55
PROVIDERS: ATTEND Nurse Practitioner Family
DX: G47.33 Obstructive sleep apnea (adult) (pediatric) (principal); E66.3 Overweight; Z68.25 Body mass index [BMI] 25.0-25.9, adult
CPT/HCPCS: 99442